=== PATIENT | female | born 1970 ===

== ENCOUNTER → 2018-10-05 | Outpatient (CLI) | payer OTHER ==
[~2018-10-05] MED LIST: ATOR20TA22 PO; CETI10CA8 PO; CHOL500050; CLON0.5T66 PO; ESCI20TA38 PO; HYDR25CA83 PO; MECL25TA27 PO; MONT10TA PO; ONDA4TAB97 PO; PANT40TA65 PO; RIZA10TA PO; TIZA4CAP6 PO; TRAZ50TA34 PO; [UNRECOGNIZED DRUG - CODE] MC
== END ==
LOC: AUD 10:10
PROVIDERS: ATTEND Otolaryngology
DX: H90.71 Mixed conductive and sensorineural hearing loss, unilateral, right ear, with unrestricted hearing on the contralateral side (principal)
CPT/HCPCS: 92557; 92570